=== PATIENT | male | born 1990 | race Caucasian/White ===

== ENCOUNTER 2021-12-08 15:12 | Inpatient (IN) | payer SELFPAY ==
[2021-12-08] VITALS (36 sets, daily range): BP systolic 133–170; BP diastolic 77–116; PULSE 77–132; RESP 18–20; TEMP 36.3–37.1; O2SAT 93–100; BMI 23.7; BMI 24.3
[2021-12-08] MEDS: ONDANSETRON 2 MG/ML inj 4 MG IVP ×2 (17:56→22:20)
[2021-12-08] MEDS: 0.9 % SODIUM CHLORIDE 1000 ml 1,000 ML IV ×2 (17:56→19:25)
[2021-12-08 17:57] LABS: Basophils Absolute Auto 0.07 K/uL (0.00-0.30); Basophils Percent Auto 0.7 % (0.0-3.0); Eosinophils Absolute Auto 0.03 K/uL (0.00-0.50); Eosinophils Percent Auto 0.3 % (0.0-7.0); Hematocrit 42.5 % (37.0-53.0); Hemoglobin* 15.6 gm/dL (13.5-17.5); Immature Granulocytes Abs Auto 0.01 K/uL (0.00-0.30); Lymphocytes Absolute Auto 2.76 K/uL (0.90-2.90); Lymphocytes Percent Auto 28.4 % (20-44); Mean Corpuscular HGB Conc 37 gm/dL (32-36); Mean Corpuscular Hemoglobin 32 pg (26-34); Mean Corpuscular Volume 87 fL (80-100); Monocytes Percent Auto 7.3 % (0.0-11.0); Neutrophils Absolute Auto 6.14 K/uL (1.7-7.0); Neutrophils Percent Auto 63.2 % (42.0-72.0); Platelet Count* 364 K/uL (140-440); RDW Coefficient of Variation % 11.3 % (11.5-15.5); Red Blood Count 4.88 m/uL (4.30-5.90); White Blood Count* 9.72 K/uL (4.50-11.00)
[2021-12-08] MEDS: LORazepam 2 MG/ML inj 1 MG IVP (18:02)
[2021-12-08 18:03] LABS: Slide Review Reflex No
[2021-12-08 18:04] LABS: Lactate* 4.5 mmol/L (0.5-1.9)
--- NOTE | 2021-12-08 18:08 | ED.NURSE ---
dr benitez and mariza rn aware of lactate of 4.5.
[2021-12-08 18:14] LABS: INR 1.06 (0.91-1.10); Prothrombin Time 14.2 Seconds
--- NOTE | 2021-12-08 18:20 | ED_ITS ---
HPI - General Adult General Date Seen: 12/08/21 Chief complaint: Flank Pain Stated complaint: Right side pain Time Seen by Provider: 12/08/21 17:31 Source: patient History of Present Illness HPI narrative: Patient is a 31-year-old male with a history of alcohol overuse who presents with right upper quadrant pain, vomiting and vomiting blood. He says that he has a history of heavy alcohol use, more recently he says he is only drinking 2 or 3 days a week. He did drink the past couple of days, last alcohol was last night. He says he has right upper quadrant pain which is fairly chronic, he says he was seen once in [place] and had a bunch of labs and was told his liver is fine, but he clearly worries a lot about this being problem with his liver. He says he has looked online and says he has a lot of the symptoms, that his skin is often dry and itchy, sometimes his eyes look yellow. He says he has right upper quadrant pain all the time which is mild but the past couple of days it has been more severe, especially today. He points to a location and the far right lateral abdomen. This morning he started vomiting, he says he initially was vomiting stomach contents with streaks of bright red blood. Then he says he was vomiting what looked more like coffee grounds. Now he is vomiting again streaks of bright red blood. He has not had any emesis that is been just blood. He has vomited multiple times. Continues to feel nauseated. Has not had any diarrhea, denies black or bloody stools. No fevers. No urinary symptoms. He chews tobacco, denies other substances. He has been through alcohol treatment. Denies other medical history. Related Data Allergies Allergy/AdvReac Type Severity Reaction Status Date / Time No Known Drug Allergies Allergy Verified 12/08/21 15:35 Review of Systems Status of ROS: Reports: 10 or more systems reviewed and unremarkable except as noted in History and below [facility] Medical History (Updated 12/08/21 @ 21:35 by Melanie Brar MD) Alcoholism GERD (gastroesophageal reflux disease) Surgical History (Updated 12/08/21 @ 21:35 by Melanie Brar MD) S/P tonsillectomy and adenoidectomy Social History Smoking Status: Never smoker Do you use any of these nicotine containing products: Smokeless Tobacco Second hand tobacco smoke exposure: No How often do you have a drink containing alcohol: 4 or more times a week How many standard drinks containing alcohol do you have on a typical day: 10 or more How often do you have six or more drinks on one occasion: Daily or almost daily AUDIT-C Alcohol total score: 12 Non-prescribed substance use: denies use Exam Narrative: Exam Narrative: Vital signs as noted above. In general, an alert, nontoxic in man. Head: Normocephalic, atraumatic. Eyes: Pupils are equal reactive. Extraocular movements are full. Conjunctivae do not appear jaundiced. ENT: Mucous membranes are moist. Throat is normal. Neck: Supple without lymphadenopathy. Heart: Tachycardic and regular. No murmur or rub. Lungs: Clear bilaterally. No increased work of breathing, crackles or wheezes. Abdomen: Soft and nontender. No organomegaly. Extremities: Well perfused. No edema. No calf tenderness. Pulses intact. Neurologic: Patient is alert and oriented to person and place. Speech is fluent. Face is symmetric. Moves all extremities equally. Affect: Normal. Skin: Warm and dry. Well perfused. Const: Vital Signs, click to edit/add: Vital Signs - 24 hr 12/08/21 15:29 12/08/21 18:23 12/08/21 18:30 Temperature 97.3 F L Pulse Rate 93 82 Pulse Rate [Right Pulse Oximeter] 132 H Respiratory Rate 20 Blood Pressure Blood Pressure [Ri ght Arm] Blood Pressure [Ri ght Upper Arm] 137/104 H Pulse Oximetry 97 97 97 Oxygen Delivery Me thod Room Air 12/08/21 18:31 12/08/21 17:55 12/08/21 18:15 Temperature Pulse Rate 91 Pulse Rate [Right Pulse Oximeter] 80 Respiratory Rate Blood Pressure 161/104 H Blood Pressure [Ri ght Arm] Blood Pressure [Ri ght Upper Arm] 170/116 H 157/107 H Pulse Oximetry 93 100 Oxygen Delivery Me thod Room Air 12/08/21 18:32 12/08/21 18:45 12/08/21 18:47 Temperature Pulse Rate 91 78 80 Pulse Rate [Right Pulse Oximeter] Respiratory Rate Blood Pressure 149/105 H Blood Pressure [Ri ght Arm] Blood Pressure [Ri ght Upper Arm] Pulse Oximetry 94 99 98 Oxygen Delivery Me thod 12/08/21 19:01 12/08/21 19:30 12/08/21 19:15 Temperature 98.7 F Pulse Rate 87 87 Pulse Rate [Right Pulse Oximeter] 77 Respiratory Rate Blood Pressure Blood Pressure [Ri ght Arm] 144/97 H Blood Pressure [Ri ght Upper Arm] Pulse Oximetry 99 99 93 Oxygen Delivery Me thod Room Air 12/08/21 19:16 12/08/21 19:30 12/08/21 19:32 Temperature Pulse Rate 77 80 81 Pulse Rate [Right Pulse Oximeter] Respiratory Rate Blood Pressure 141/103 H 144/97 H Blood Pressure [Ri ght Arm] Blood Pressure [Ri ght Upper Arm] Pulse Oximetry 98 99 99 Oxygen Delivery Ca thod 12/08/21 19:33 12/08/21 19:45 12/08/21 19:47 Temperature Pulse Rate 85 94 78 Pulse Rate [Right Pulse Oximeter] Respiratory Rate Blood Pressure 140/99 H Blood Pressure [Ri ght Arm] Blood Pressure [Ri ght Upper Arm] Pulse Oximetry 98 100 100 Oxygen Delivery Me thod 12/08/21 20:00 12/08/21 20:01 12/08/21 20:15 Temperature Pulse Rate 89 86 105 H Pulse Rate [Right Pulse Oximeter] Respiratory Rate Blood Pressure 137/98 H Blood Pressure [Ri ght Arm] Blood Pressure [Ri ght Upper Arm] Pulse Oximetry 100 98 100 Oxygen Delivery Me thod 12/08/21 20:16 12/08/21 21:09 12/08/21 20:17 Temperature Pulse Rate 92 94 Pulse Rate [Right Pulse Oximeter] 95 Respiratory Rate Blood Pressure 137/97 H Blood Pressure [Ri ght Arm] 144/99 H Blood Pressure [Ri ght Upper Arm] Pulse Oximetry 99 98 99 Oxygen Delivery Me thod Room Air 12/08/21 20:30 12/08/21 20:32 12/08/21 20:45 Temperature Pulse Rate 99 109 H 103 H Pulse Rate [Right Pulse Oximeter] Respiratory Rate Blood Pressure 139/84 Blood Pressure [Ri ght Arm] Blood Pressure [Ri ght Upper Arm] Pulse Oximetry 100 99 97 Oxygen Delivery Me thod 12/08/21 20:47 12/08/21 21:00 12/08/21 21:01 Temperature Pulse Rate 107 H 97 99 Pulse Rate [Right Pulse Oximeter] Respiratory Rate Blood Pressure 142/114 H 144/99 H Blood Pressure [Ri ght Arm] Blood Pressure [Ri ght Upper Arm] Pulse Oximetry 98 99 98 Oxygen Delivery Me thod 12/08/21 21:15 12/08/21 21:17 Temperature Pulse Rate 106 H 97 Pulse Rate [Right Pulse Oximeter] Respiratory Rate Blood Pressure 152/77 H Blood Pressure [Ri ght Arm] Blood Pressure [Ri ght Upper Arm] Pulse Oximetry 99 97 Oxygen Delivery Me thod Course Course Hospital Course: Initially, we placed an IV here, carmelita labs, gave a L of normal saline as well as Zofran and a mg of Ativan for suspected withdrawal given his tachycardia and hypertension. It did sound like the blood in his emesis was probably likely related to Cierra-Starkey tears rather than esophageal perforation given his otherwise benign presentation. White count returned at 9.7, hemoglobin of 15.6, platelets normal. Initial metabolic panel showed CO2 of 18. His lactate was elevated at 4.5. He received a total of 2 L of normal saline initially. His LFTs showed a total bilirubin of 1.7 an AST of 41, ALT of 28. CRP was normal at less than 0.5. Alk-phos was normal at 71 and lipase was normal at 158. His abdominal exam really was quite benign, he did not have any right upper quadrant tenderness but all things considered I elected to do a CT scan of the abdomen to rule out any significant findings, make sure he did not have any evidence of pancreatitis, perforated viscus etcetera. By my review, there were no acute findings in the abdomen, and I did not see any acute abnormalities in the visualized chest either. The final radiology report was negative. After fluids, I repeated the lactate and basic metabolic panel, and I did a venous gas at the same time. Labs really are not markedly improved, and in addition he had another episode of vomiting despite the Zofran. I did give him Reglan. He is complaining of chest pain when he vomits. I did a chest x-ray just to make sure there are no abnormalities at this time, by my review that is negative, I do not see any evidence of pneumothorax or pneumomediastinum. The final radiology read is likewise negative. An EKG likewise did not show any acute findings by my review. QT was slightly prolonged. His blood alcohol was 0.11. Venous gas showed interestingly a respiratory alkalosis. No evidence of an alcoholic ketoacidosis or signs of lactic acidosis. At this time, I do not think is a good candidate to go home or to detox given metabolic abnormalities and ongoing vomiting. Plan will be to admit him to the hospitalist service. I gave him Protonix 40 mg IV. At this time, he is not showing significant signs of withdrawal after Ativan. Vital Signs Vital signs: Initial Vital Signs Temperature 97.3 F L 12/08/21 15:29 Temperature Source Temporal Artery Scan 12/08/21 15:29 Pulse Rate 132 H 12/08/21 15:29 Respiratory Rate 20 12/08/21 15:29 Blood Pressure 137/104 H 12/08/21 15:29 Blood Pressure Mean 115 12/08/21 15:29 Blood Pressure Position Sitting 12/08/21 15:29 Pulse Oximetry 97 12/08/21 15:29 Oxygen Delivery Method 12/08/21 15:29 Vital Signs Temperature 97.3 F L 12/08/21 15:29 Pulse Rate 132 H 12/08/21 15:29 Respiratory Rate 20 12/08/21 15:29 Blood Pressure 137/104 H 12/08/21 15:29 Pulse Oximetry 97 12/08/21 15:29 Oxygen Delivery Method 12/08/21 15:29 Temperature 98.7 F 12/08/21 19:30 Pulse Rate 97 12/08/21 21:17 Respiratory Rate 20 12/08/21 15:29 Blood Pressure 152/77 H 12/08/21 21:17 Pulse Oximetry 97 12/08/21 21:17 Oxygen Delivery Method 12/08/21 21:09 Medical Decision Making Lab Data Labs: Lab Results 12/08/21 12/08/21 12/08/21 Range/Units 17:45 17:45 17:45 WBC 9.72 (4.50-11.00) K/uL RBC 4.88 (4.30-5.90) m/uL Hgb 15.6 (13.5-17.5) gm/dL Hct 42.5 (37.0-53.0) % MCV 87 (80-100) fL MCH 32 (26-34) pg MCHC 37 H (32-36) gm/dL RDW Coeff of Renuka 11.3 L (11.5-15.5) % Plt Count 364 (140-440) K/uL Neut % (Auto) 63.2 (42.0-72.0) % Lymph % (Auto) 28.4 (20-44) % [place] % (Auto) 7.3 (0.0-11.0) % Eos % (Auto) 0.3 (0.0-7.0) % Baso % (Auto) 0.7 (0.0-3.0) % Neut # (Auto) 6.14 (1.7-7.0) K/uL Lymph # (Auto) 2.76 (0.90-2.90) K/uL [place] # (Auto) 0.70 (0.00-0.90) K/UL Eos # (Auto) 0.03 (0.00-0.50) K/uL Baso # (Auto) 0.07 (0.00-0.30) K/uL Abs Immat Gran (auto) 0.01 (0.00-0.30) K/uL INR (0.91-1.10) VBG pH (7.32-7.43) VBG pCO2 (40-50) mmHG VBG pO2 (25-47) mmHG VBG HCO3 (21-28) mmol/L Sodium 141 (135-149) mmol/L Potassium 3.5 L (3.6-5.1) mmol/L Chloride 101 (96-114) mmol/L Carbon Dioxide 18 L (20-32) mmol/L BUN 11 (5-24) mg/dL Creatinine 1.1 (0.5-1.5) mg/dL Estimated Creat Clear 107.78 Estimated GFR 93 ml/min Glucose 126 H (60-115) mg/dL Lactate 4.5 H* (0.5-1.9) mmol/L Calcium 9.2 (8.4-10.6) mg/dL Total Bilirubin 1.7 H (0.1-1.5) mg/dL Direct Bilirubin 0.3 (0.0-0.5) mg/dL AST 41 H (12-35) U/L ALT 28 (4-50) U/L Alkaline Phosphatase 71 (40-150) U/L C-Reactive Protein < 0.5 L (0.5-1.0) mg/dL Total Protein 8.6 H (6.0-8.3) g/dL Albumin 5.1 H (3.3-5.0) g/dL Lipase 158 (23-300) U/L Ethyl Alcohol 0.11 H (0.01-0.03) % SARS-CoV-2 (PCR) (Negative) Influenza Type A (PCR) (Negative) Influenza Type B (PCR) (Negative) 12/08/21 12/08/21 12/08/21 Range/Units 17:45 19:46 20:28 WBC (4.50-11.00) K/uL RBC (4.30-5.90) m/uL Hgb (13.5-17.5) gm/dL Hct (37.0-53.0) % MCV (80-100) fL MCH (26-34) pg MCHC (32-36) gm/dL RDW Coeff of Renuka (11.5-15.5) % Plt Count (140-440) K/uL Neut % (Auto) (42.0-72.0) % Lymph % (Auto) (20-44) % [place] % (Auto) (0.0-11.0) % Eos % (Auto) (0.0-7.0) % Baso % (Auto) (0.0-3.0) % Neut # (Auto) (1.7-7.0) K/uL Lymph # (Auto) (0.90-2.90) K/uL [place] # (Auto) (0.00-0.90) K/UL Eos # (Auto) (0.00-0.50) K/uL Baso # (Auto) (0.00-0.30) K/uL Abs Immat Gran (auto) (0.00-0.30) K/uL INR 1.06 (0.91-1.10) VBG pH (7.32-7.43) VBG pCO2 (40-50) mmHG VBG pO2 (25-47) mmHG VBG HCO3 (21-28) mmol/L Sodium 139 (135-149) mmol/L Potassium 3.6 (3.6-5.1) mmol/L Chloride 106 (96-114) mmol/L Carbon Dioxide 19 L (20-32) mmol/L BUN 10 (5-24) mg/dL Creatinine 1.0 (0.5-1.5) mg/dL Estimated Creat Clear 118.56 Estimated GFR 104 ml/min Glucose 112 (60-115) mg/dL Lactate (0.5-1.9) mmol/L Calcium 8.1 L (8.4-10.6) mg/dL Total Bilirubin (0.1-1.5) mg/dL Direct Bilirubin (0.0-0.5) mg/dL AST (12-35) U/L ALT (4-50) U/L Alkaline Phosphatase (40-150) U/L C-Reactive Protein (0.5-1.0) mg/dL Total Protein (6.0-8.3) g/dL Albumin (3.3-5.0) g/dL Lipase (23-300) U/L Ethyl Alcohol (0.01-0.03) % SARS-CoV-2 (PCR) Negative SARS-CoV-2 (Negative) Influenza Type A (PCR) Negative PCR FLU A (Negative) Influenza Type B (PCR) Negative PCR FLU B (Negative) 12/08/21 12/08/21 Range/Units 20:28 20:28 WBC (4.50-11.00) K/uL RBC (4.30-5.90) m/uL Hgb (13.5-17.5) gm/dL Hct (37.0-53.0) % MCV (80-100) fL MCH (26-34) pg MCHC (32-36) gm/dL RDW Coeff of Renuka (11.5-15.5) % Plt Count (140-440) K/uL Neut % (Auto) (42.0-72.0) % Lymph % (Auto) (20-44) % [place] % (Auto) (0.0-11.0) % Eos % (Auto) (0.0-7.0) % Baso % (Auto) (0.0-3.0) % Neut # (Auto) (1.7-7.0) K/uL Lymph # (Auto) (0.90-2.90) K/uL [place] # (Auto) (0.00-0.90) K/UL Eos # (Auto) (0.00-0.50) K/uL Baso # (Auto) (0.00-0.30) K/uL Abs Immat Gran (auto) (0.00-0.30) K/uL INR (0.91-1.10) VBG pH 7.458 H (7.32-7.43) VBG pCO2 31 L (40-50) mmHG VBG pO2 64.3 H (25-47) mmHG VBG HCO3 22 (21-28) mmol/L Sodium (135-149) mmol/L Potassium (3.6-5.1) mmol/L Chloride (96-114) mmol/L Carbon Dioxide (20-32) mmol/L BUN (5-24) mg/dL Creatinine (0.5-1.5) mg/dL Estimated Creat Clear Estimated GFR ml/min Glucose (60-115) mg/dL Lactate 4.4 H* (0.5-1.9) mmol/L Calcium (8.4-10.6) mg/dL Total Bilirubin (0.1-1.5) mg/dL Direct Bilirubin (0.0-0.5) mg/dL AST (12-35) U/L ALT (4-50) U/L Alkaline Phosphatase (40-150) U/L C-Reactive Protein (0.5-1.0) mg/dL Total Protein (6.0-8.3) g/dL Albumin (3.3-5.0) g/dL Lipase (23-300) U/L Ethyl Alcohol (0.01-0.03) % SARS-CoV-2 (PCR) (Negative) Influenza Type A (PCR) (Negative) Influenza Type B (PCR) (Negative) Discharge Plan Discharge Follow Up/Referrals: Provider,Not a Local [Primary Care Provider] -
[2021-12-08 18:24] LABS: Albumin* 5.1 g/dL (3.3-5.0); Chloride* 101 mmol/L (96-114); Potassium* 3.5 mmol/L (3.6-5.1); Sodium* 141 mmol/L (135-149)
[2021-12-08 18:26] LABS: Creatinine* 1.1 mg/dL (0.5-1.5); Est. Creatinine Clearance* 107.78; Estimated Glomerular Filt Rate 93 ml/min
[2021-12-08 18:27] LABS: Alkaline Phosphatase* 71 U/L (40-150); Aspartate Amino Transferase* 41 U/L (12-35); Bilirubin Direct* 0.3 mg/dL (0.0-0.5); Bilirubin Total* 1.7 mg/dL (0.1-1.5); Blood Urea Nitrogen* 11 mg/dL (5-24); Carbon Dioxide* 18 mmol/L (20-32); Lipase* 158 U/L (23-300); Total Protein* 8.6 g/dL (6.0-8.3)
[2021-12-08 18:28] LABS: Alanine Aminotransferase* 28 U/L (4-50); Calcium* 9.2 mg/dL (8.4-10.6); Ethanol* 0.11 % (0.01-0.03); Glucose* 126 mg/dL (60-115)
--- NOTE | 2021-12-08 18:33 | CRLHL7_ITS ---
For Patients: As a result of the Century Cures Act, medical imaging exams and procedure reports are released immediately into your electronic medical record. You may view this report before your referring provider. If you have questions, please contact your health care provider. INDICATION: Right-sided abdominal pain TECHNIQUE: CT abdomen and pelvis acquired with 85 cc Isovue 370 IV contrast. COMPARISON: None. FINDINGS: Lower chest: The visualized lower lungs are aerated. No pleural or pericardial effusion. ABDOMEN: Liver: Normal enhancement. No focal suspicious hepatic lesions. Gallbladder and biliary: Normal gallbladder without radiopaque stone. Normal caliber bile ducts. Spleen: Normal size and enhancement. Pancreas: Normal enhancement without peripancreatic inflammatory changes or ductal dilatation. Adrenal glands: Normal adrenal glands. Kidneys and ureters: Normal enhancement. No radio-opaque calculi. No hydroureteronephrosis. GI tract: The stomach is relatively decompressed. Normal caliber small and large bowel loops. Normal appendix. Vascular structures: Normal caliber abdominal aorta. Lymph nodes: No lymphadenopathy in the abdomen or pelvis by size criteria. Peritoneum: No free air, free fluid, or focal drainable fluid collection. PELVIS: Genitourinary system: Normal urinary bladder. Normal size prostate. Symmetric seminal vesicles. SKELETAL STRUCTURES AND SOFT TISSUES: No suspicious lytic or blastic lesions. IMPRESSION: No acute abdominal pelvic process. No obstruction. No hydroureteronephrosis. Normal appendix. No imaging findings to explain the patient`s reported clinical symptoms. Please note that all CT scans at this facility use dose modulation, iterative reconstruction, and/or weight-based dosing when appropriate to reduce radiation dose to as low as reasonably achievable. Dictated by Vikram Forrester MD @ 12/08/2021 7:28:41 PM (Electronically Signed)
[2021-12-08 18:35] LABS: C Reactive Protein* < 0.5 mg/dL (0.5-1.0)
[2021-12-08 20:41] LABS: PCO2 VBG 31 mmHG (40-50); pH VBG 7.458 (7.32-7.43)
[2021-12-08 20:42] LABS: HCO3 VBG 22 mmol/L (21-28); PO2 VBG 64.3 mmHG (25-47)
[2021-12-08 20:43] LABS: Lactate* 4.4 mmol/L (0.5-1.9)
[2021-12-08] MEDS: PANTOPRAZOLE SODIUM 40 MG INJ IVP (20:47)
[2021-12-08 20:48] LABS: PCR FLU A Negative PCR FLU A (Negative); PCR FLU B Negative PCR FLU B (Negative); SARS PCR* Negative SARS-CoV-2 (Negative)
--- NOTE | 2021-12-08 20:50 | CRLHL7_ITS ---
For Patients: As a result of the Century Cures Act, medical imaging exams and procedure reports are released immediately into your electronic medical record. You may view this report before your referring provider. If you have questions, please contact your health care provider. INDICATION: Chest pain. TECHNIQUE: Chest 1 views. COMPARISON: None. FINDINGS: Cardiovascular and mediastinum: Heart size and vasculature are normal in caliber and appearance. Lungs and pleural spaces: Lungs are clear. No sign of pleural effusion. No pneumothorax. Bones and soft tissues: No significant findings. IMPRESSION: No acute or significant findings. Dictated by Kapil Saldivar MD @ 12/08/2021 9:39:51 PM (Electronically Signed)
--- NOTE | 2021-12-08 20:51 | ED.NURSE ---
Pt complaining of feeling a heartburn type epigastric/chest pain. Pt also producing emesis relatively frequently (~150cc total at this time). Emesis is yellowish-clear colored and frothy. MD notified of pt emesis and heartburn/chest pain. MD ordered additional meds and imaging.
[2021-12-08 20:54] LABS: Chloride* 106 mmol/L (96-114); Potassium* 3.6 mmol/L (3.6-5.1); Sodium* 139 mmol/L (135-149)
[2021-12-08 20:57] LABS: Blood Urea Nitrogen* 10 mg/dL (5-24); Carbon Dioxide* 19 mmol/L (20-32); Est. Creatinine Clearance* 118.56; Estimated Glomerular Filt Rate 104 ml/min
[2021-12-08 20:58] LABS: Calcium* 8.1 mg/dL (8.4-10.6); Glucose* 112 mg/dL (60-115)
[2021-12-08] MEDS: METOCLOPRAMIDE HCL 10 MG in 0.9 % SODIUM CHLORIDE 100 ml 100 ML 306 MG IVPB (21:04)
--- NOTE | 2021-12-08 21:09 | W.PC.EDHO ---
Primary Language: Yakut Preferred Language: Orientation Status: x Alert & Oriented [] Slight Confusion [] Known Dx Dementia Transfers By: [x] Assist of 1 [] Assist of 2 [] Lift Active Medications Generic Name Dose Route Start Last Admin Trade Name Freq PRN Reason Stop Dose Admin Metoclopramide HCl 10 mg/ 102 mls @ 306 mls/hr 12/08/21 20:30 12/08/21 21:04 Sodium Chloride IVPB 12/08/21 20:31 306 mls/hr ONCE ONE Administration Pantoprazole Sodium 40 mg 12/08/21 20:36 12/08/21 20:47 Pantoprazole Sodium 40 Mg Inj IVP 12/08/21 20:37 40 mg ONCE ONE Administration Discontinued Medications Generic Name Dose Route Start Last Admin Trade Name Freq PRN Reason Stop Dose Admin Sodium Chloride 1,000 mls @ 1,000 mls/hr 12/08/21 17:45 12/08/21 19:24 0.9 % Sodium Chloride 1000 Ml IV 12/08/21 18:44 Infused .Q1H GUILLERMO Infusion Sodium Chloride 1,000 mls @ 1,000 mls/hr 12/08/21 18:15 12/08/21 20:35 0.9 % Sodium Chloride 1000 Ml IV 12/08/21 19:14 Infused .Q1H GUILLERMO Infusion Pantoprazole Sodium 80 mg/ 100 mls @ 10 mls/hr 12/08/21 20:30 12/08/21 20:47 Sodium Chloride IVPB 12/09/21 06:29 Not Given ONCE ONE Lorazepam 1 mg 12/08/21 17:56 12/08/21 18:02 Lorazepam 2 Mg/Ml Inj IVP 12/08/21 17:57 1 mg ONCE ONE Administration Ondansetron HCl 4 mg 12/08/21 17:44 12/08/21 17:56 Ondansetron 2 Mg/Ml Inj IVP 12/08/21 17:45 4 mg ONCE ONE Administration Description of Symptoms ED Triage Present Problem patient is havng sharp pain in the right side of Description the abdomen. stated vomiting blood and bright red then sometime coffee ground. strted 0300 in the morning and has not stopped vomiting. otherwise has been vomiting blood for the past 2 years hx of ETOH. last time drinking was yesterday drank a pint of whiskey. pt is feeling lightheaded, weak , side right feels as if getting stabbed, N. ED Triage Date of Onset of 12/08/21 Symptoms Female History Patient Pain Pain Description [Right Burning,Sharp Abdomen] Pain Description [Right Sharp,Stabbing Abdomen] Pain Intensity [Right Abdomen] 7 Pain Intensity [Right Abdomen] 8 Pain Intensity 7 Pain Intensity 7 Pain Scale Used [Right Abdomen Numeric (1 - 10) ] Pain Scale Used [Right Abdomen Numeric (1 - 10) ] Pain Scale Used Numeric (1 - 10) Pain Scale Used Numeric (1 - 10) IV Insertion/Site Date of IV Line Insertion [ 12/08/21 Left Antecubital] Oxygen Administration Pulse Oximetry 99 Pulse Oximetry 100 Pulse Oximetry 98 Pulse Oximetry 100 Pulse Oximetry 100 Pulse Oximetry 100 Pulse Oximetry 98 Pulse Oximetry 99 Pulse Oximetry 99 Pulse Oximetry 99 Pulse Oximetry 98 Pulse Oximetry 93 Pulse Oximetry 99 Pulse Oximetry 98 Pulse Oximetry 99 Pulse Oximetry 94 Pulse Oximetry 93 Pulse Oximetry 97 Pulse Oximetry 97 Pulse Oximetry 100 Pulse Oximetry 97 Oxygen Delivery Method Room Air Oxygen Delivery Method Room Air Oxygen Delivery Method Room Air
--- NOTE | 2021-12-08 21:23 | PM.IMHP1 ---
Hospitalist- H&P: HPI History of Present Illness Date Seen: 12/08/21 Chief complaint: Right side pain Narrative: ADMISSION HISTORY AND PHYSICAL - HOSPITALIST Chief Complaint: My abdomen is sore and I'm puking blood HPI: 31 y/o with a hx of alcoholism presents to our ED with RUQ pain and n/v. he has noted blood streaked vomit. this is a new occurence to him and with baseline anxiety has made him quite unsettled. No fever, no diarrhea. no cough. Was in the [facility] with dehydration and withdrawal and had a creatinine of 3 last month. He was not admitted. No known seizure hx during withdrawal. does tell me he withdrawals and sees things that aren't there. Last drink was 0900 this am. whisky. pint or so a day. In the ED he had fluids, protonix, reglan, zofran and a CT scan. Hospital medicine team asked to admit for persistent elevated lactate, continued vomiting with bloody streaks even after fluids and zofran/reglan. I've updated the PFSH, medications and allergies in the [facility] tabs. INVESTIGATIONS: LABS/MICRO/ECG/IMAGING Hypertensive since arrival 130s to 170s/104-107 Pulse rate was initially 132 and is currently 1 6 but has been as low as 78 Respiratory rate and pulse ox are unremarkable. CBC is unremarkable. Hemoglobin 15.6 INR 1.06 PH 7.45, pCO2 31, bicarb 22 CO2 of 19 Normal electrolytes and renal function Glucose 122 Persistently elevated lactate of 4.5 and 4.4 Total bili mildly elevated 1.7 AST mildly elevated at 41 CRP unremarkable Total protein 8.6 Albumin 5.1 Alcohol level 0.[address] abdomen pelvis: No acute abdominal pelvic process. No obstruction. No hydroureteronephrosis. Normal appendix. No imaging findings to explain the patient`s reported clinical symptoms. Chest x-ray unremarkable REVIEW OF SYSTEMS: 12-point ROS completed with patient and negative unless otherwise stated in HPI or below. PHYSICAL EXAM: CODE STATUS: FULL CODE CONSTITUTIONAL: Conversive, good historian. A/O. Knows setting and context. He's anxious and gets up to dry heave during interview. VITAL SIGNS: see record. HEENT: Normocephalic, atraumatic. PERRL, EOMI, conjunctivae pink, no scleral icterus. Ears and nose externally normal. Pharynx dry. NECK: No JVD. No carotid bruit, no thyromegaly, no adenopathy. CHEST: Clear to auscultation bilaterally HEART: S1 and S2 normal. No harsh murmurs. Edema MUSCULOSKELETAL: No gross joint deformity or swelling. NEURO: Cranial nerves intact. Grossly intact. No asymmetric findings. SKIN: No rashes, petechiae, concerning changes PSYCHIATRIC: Euthymic. ADMIT TO MEDSURG: FLOOR CARE DVT: SCDs GI: PPI Time spent: 70 minutes examining patient, conferring with family and patient, care staff, developing care plan [facility] Medical History Alcoholism GERD (gastroesophageal reflux disease) Surgical History S/P tonsillectomy and adenoidectomy Social History Narrative: lives with his Dad in [facility]. 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 Graduated from college. no kids. What is your current living situation: I presently have a place to live Smoking Status: Never smoker Do you use any of these nicotine containing products: Smokeless Tobacco Second hand tobacco smoke exposure: No How often do you have a drink containing alcohol: 4 or more times a week How many standard drinks containing alcohol do you have on a typical day: 10 or more How often do you have six or more drinks on one occasion: Daily or almost daily AUDIT-C Alcohol total score: 12 Non-prescribed substance use: denies use Meds Home Medications and Allergies Allergies Allergy/AdvReac Type Severity Reaction Status Date / Time No Known Drug Allergies Allergy Verified 12/08/21 15:35 Exam Const: Vital Signs, click to edit/add: Vital Signs - 24 hr 12/08/21 15:29 12/08/21 18:23 12/08/21 18:30 Temperature 97.3 F L Pulse Rate 93 82 Pulse Rate [Right Pulse Oximeter] 132 H Respiratory Rate 20 Blood Pressure Blood Pressure [Ri ght Arm] Blood Pressure [Ri ght Upper Arm] 137/104 H Pulse Oximetry 97 97 97 Oxygen Delivery Me thod Room Air 12/08/21 18:31 12/08/21 17:55 12/08/21 18:15 Temperature Pulse Rate 91 Pulse Rate [Right Pulse Oximeter] 80 Respiratory Rate Blood Pressure 161/104 H Blood Pressure [Ri ght Arm] Blood Pressure [Ri ght Upper Arm] 170/116 H 157/107 H Pulse Oximetry 93 100 Oxygen Delivery Me thod Room Air 12/08/21 18:32 12/08/21 18:45 12/08/21 18:47 Temperature Pulse Rate 91 78 80 Pulse Rate [Right Pulse Oximeter] Respiratory Rate Blood Pressure 149/105 H Blood Pressure [Ri ght Arm] Blood Pressure [Ri ght Upper Arm] Pulse Oximetry 94 99 98 Oxygen Delivery Me thod 12/08/21 19:01 12/08/21 19:30 12/08/21 19:15 Temperature 98.7 F Pulse Rate 87 87 Pulse Rate [Right Pulse Oximeter] 77 Respiratory Rate Blood Pressure Blood Pressure [Ri ght Arm] 144/97 H Blood Pressure [Ri ght Upper Arm] Pulse Oximetry 99 99 93 Oxygen Delivery Me od Room Air 12/08/21 19:16 12/08/21 19:30 12/08/21 19:32 Temperature Pulse Rate 77 80 81 Pulse Rate [Right Pulse Oximeter] Respiratory Rate Blood Pressure 141/103 H 144/97 H Blood Pressure [Ri ght Arm] Blood Pressure [Ri ght Upper Arm] Pulse Oximetry 98 99 99 Oxygen Delivery Me od 12/08/21 19:33 12/08/21 19:45 12/08/21 19:47 Temperature Pulse Rate 85 94 78 Pulse Rate [Right Pulse Oximeter] Respiratory Rate Blood Pressure 140/99 H Blood Pressure [Ri ght Arm] Blood Pressure [Ri ght Upper Arm] Pulse Oximetry 98 100 100 Oxygen Delivery Me thod 12/08/21 20:00 12/08/21 20:01 12/08/21 20:15 Temperature Pulse Rate 89 86 105 H Pulse Rate [Right Pulse Oximeter] Respiratory Rate Blood Pressure 137/98 H Blood Pressure [Ri ght Arm] Blood Pressure [Ri ght Upper Arm] Pulse Oximetry 100 98 100 Oxygen Delivery Me thod 12/08/21 20:16 12/08/21 21:09 12/08/21 20:17 Temperature Pulse Rate 92 94 Pulse Rate [Right Pulse Oximeter] 95 Respiratory Rate Blood Pressure 137/97 H Blood Pressure [Ri ght Arm] 144/99 H Blood Pressure [Ri ght Upper Arm] Pulse Oximetry 99 98 99 Oxygen Delivery Me od Room Air 12/08/21 20:30 12/08/21 20:32 12/08/21 20:45 Temperature Pulse Rate 99 109 H 103 H Pulse Rate [Right Pulse Oximeter] Respiratory Rate Blood Pressure 139/84 Blood Pressure [Ri ght Arm] Blood Pressure [Ri ght Upper Arm] Pulse Oximetry 100 99 97 Oxygen Delivery Me thod 12/08/21 20:47 12/08/21 21:00 12/08/21 21:01 Temperature Pulse Rate 107 H 97 99 Pulse Rate [Right Pulse Oximeter] Respiratory Rate Blood Pressure 142/114 H 144/99 H Blood Pressure [Ri ght Arm] Blood Pressure [Ri ght Upper Arm] Pulse Oximetry 98 99 98 Oxygen Delivery Me od 12/08/21 21:15 Temperature Pulse Rate 106 H Pulse Rate [Right Pulse Oximeter] Respiratory Rate Blood Pressure Blood Pressure [Ri ght Arm] Blood Pressure [Ri ght Upper Arm] Pulse Oximetry [facility]: Result Labs Labs: Short CBC 12/08/21 Range/Units 17:45 WBC 9.72 (4.50-11.00) K/uL Hgb 15.6 (13.5-17.5) gm/dL Hct 42.5 (37.0-53.0) % Plt Count 364 (140-440) K/uL BMP 12/08/21 12/08/21 17:45 20:28 Sodium 141 139 Potassium 3.5 L 3.6 Chloride 101 106 Carbon Dioxide 18 L 19 L BUN 11 10 Creatinine 1.1 1.0 Glucose 126 H 112 Calcium 9.2 8.1 L Liver Function 12/08/21 Range/Units 17:45 Total Bilirubin 1.7 H (0.1-1.5) mg/dL Direct Bilirubin 0.3 (0.0-0.5) mg/dL AST 41 H (12-35) U/L ALT 28 (4-50) U/L Alkaline Phosphatase 71 (40-150) U/L Albumin 5.1 H (3.3-5.0) g/dL Assessment and Plan Assessment and plan (1) Lactic acidosis: Problem comment: -clear sips and ice chips tonight -IVF at 250cc and hour -continuous pulse ox -trend labs Status: Acute (2) Hematemesis with nausea: Problem comment: -PPI IV, oral PPI. trend symptoms and labs. likely gastritis. consider EGD if clinically indicated. Status: Acute (3) Alcohol withdrawal: Problem comment: -[facility] protocol -single dose of phenobarbital. hypertensive; anxious; previous withdrawal symptoms. Status: Acute (4) Alcoholism: Status: Acute (5) GERD (gastroesophageal reflux disease): Status: Acute
--- NOTE | 2021-12-08 21:26 | ED.NURSE ---
EKG completed due to pt complaint of chest pain. MD notified.
[2021-12-08 22:06] LABS: Appearance Urine Clear (Clear); Bilirubin Urine Negative (Negative); Blood Urine Negative (Negative); Color Urine Yellow (Yellow); Glucose Urine Negative (Negative); Ketones Urine 1+ (Negative); Leukocyte Esterase Urine Negative (Negative); Nitrite Urine Negative (Negative); Protein Urine Trace (Negative); Urobilinogen Urine >=8.0 (0.2-1.0); pH Urine 7.5 (5.0-8.5)
[2021-12-08 22:12] LABS: Amphetamine Screen Urine Negative (Negative); Barbiturate Screen Urine Negative (Negative); Cannabinoid Screen Urine Negative (Negative); Cocaine Screen Urine Negative (Negative); Methadone Screen Urine Negative (Negative); Methamphetamines Screen Urine Negative (Negative); Opiate Screen Urine Negative (Negative); Oxycodone Screen Urine Negative (Negative); Phencyclidine Screen Urine Negative (Negative); Tricyclic Antidepressant Urine Negative (Negative)
[2021-12-08] MEDS: LORazepam 2 MG/ML inj IVP (22:19)
[2021-12-08] MEDS: LACTATED RINGERS 1000 ML 1,000 ML 250 ML IV (22:20)
[2021-12-08 22:27] LABS: RBC Urine 0-2 (0-2); WBC Urine 0-2 (0-5)
[2021-12-08] MEDS: GABAPENTIN 300 MG CAPSULE PO (22:29)
[2021-12-08 22:35] LABS: Benzodiazepines Screen Urine POSITIVE (Negative)
[2021-12-08] MEDS: PHENobarbitaL 260 MG in 0.9 % SODIUM CHLORIDE 100 ml 100 ML 208 MG IVPB (22:52)
[2021-12-09] VITALS (7 sets, daily range): BP systolic 119–158; BP diastolic 76–103; PULSE 63–97; RESP 16–18; TEMP 36.2–36.7; O2SAT 94–99
[2021-12-09] MEDS: LACTATED RINGERS 1000 ML 1,000 ML 250 ML IV ×3 (03:15→10:49)
[2021-12-09] MEDS: OMEPRAZOLE 20 MG CAPSULE DR 40 MG PO (06:43)
--- NOTE | 2021-12-09 07:24 | PC.NURSE ---
pt to floor at 2135. Upon arrival pt was very nauseous & dry heaving ? minimal clear emesis. Pt was given Zofran with relief. Pt c/o epigastric discomfort r/t vomiting. 1mg Ativan given per CIWA protocol. Pt resting/sleeping after Ativan admin & phenobarbital drip. CIWA scores remaining below 9. BP now WNL. ? Pt states he does not get drunk when drinking?beer and usually doesn?t get sick when he drinks beer. He stated when he drinks whiskey it?s ?too easy? to get drunk, & that when he wakes up after drinking whiskey, he does not feel good so he starts drinking again. ?
[2021-12-09 07:26] LABS: HCO3 VBG 29 mmol/L (21-28); Ionized Calcium* 1.03 mmol/L (1.11-1.30); Lactate* 1.5 mmol/L (0.5-1.9); PCO2 VBG 47 mmHG (40-50); PO2 VBG 34.4 mmHG (25-47)
[2021-12-09 07:36] LABS: Hemoglobin* 12.1 gm/dL (13.5-17.5)
[2021-12-09 07:45] LABS: Albumin* 3.7 g/dL (3.3-5.0); Chloride* 103 mmol/L (96-114)
[2021-12-09 07:46] LABS: Potassium* 3.5 mmol/L (3.6-5.1); Sodium* 136 mmol/L (135-149)
[2021-12-09 07:48] LABS: Alkaline Phosphatase* 51 U/L (40-150); Aspartate Amino Transferase* 29 U/L (12-35); Bilirubin Total* 1.9 mg/dL (0.1-1.5); Blood Urea Nitrogen* 8 mg/dL (5-24); Carbon Dioxide* 27 mmol/L (20-32); Est. Creatinine Clearance* 118.56; Estimated Glomerular Filt Rate 104 ml/min; Total Protein* 6.1 g/dL (6.0-8.3)
[2021-12-09 07:49] LABS: Alanine Aminotransferase* 22 U/L (4-50); Calcium* 7.8 mg/dL (8.4-10.6); Gamma Glutamyl Transpeptidase* 69 U/L (8-55); Glucose* 104 mg/dL (60-115); Lipase* 82 U/L (23-300); Magnesium* 1.4 mg/dL (1.5-2.6)
[2021-12-09] MEDS: ACETAMINOPHEN 325 MG TABLET PO (08:35)
[2021-12-09] MEDS: MULTIVITAMIN/MINERALS 1 TABLET 1 TAB PO (08:35)
[2021-12-09] MEDS: GABAPENTIN 300 MG CAPSULE PO (08:36)
[2021-12-09] MEDS: PHENobarbitaL 32.4 MG TABLET 129.6 MG PO (08:36)
[2021-12-09] MEDS: FOLIC ACID 1 MG TABLET PO (08:36)
[2021-12-09] MEDS: THIAMINE 100 MG TABLET PO (08:36)
[2021-12-09] MEDS: MAGNESIUM SULFATE 2 GM/50 ML PIGGYBACK IVPB (12:07)
--- NOTE | 2021-12-09 14:57 | PC.NURSE ---
end of shift. Pt has been pleasant. has some right upper gastro intestinal discomfort and feeling tired and weak. elevated the HOB and gave tylenol. CIWA 4-7 no Ativan given per. he is drinking and voiding. no food or tray just water. IV LR @ 250. he is up ab nash. CIwa q 4 hours. he is at endo since 1425
--- NOTE | 2021-12-09 15:53 | W.ANESCHARGE ---
Anesthesia Charges Start Date/Time Anesthesia Start Date: 12/09/21 Anesthesia Start Time: 15:24 Stop Date/Time Anesthesia Stop Date: 12/09/21 Anesthesia Stop Time: 15:47 Summary Emergency: Yes
--- NOTE | 2021-12-09 15:58 | W.ANESCHARGE ---
Anesthesia Charges Start Date/Time Anesthesia Start Date: 12/09/21 Anesthesia Start Time: 15:24 Stop Date/Time Anesthesia Stop Date: 12/09/21 Anesthesia Stop Time: 15:47 Summary Emergency: Yes
--- NOTE | 2021-12-09 16:06 | P.DS_ITS ---
DS: Providers Provider Date Seen: 12/09/21 Date of admission: 12/08/21 21:56 Primary care physician: Not a Local Provider Admitting Clinician: Melanie Brar MD Attending Physician on discharge: Melanie Brar MD Date of Discharge: 12/09/21 DS: Diagnosis Discharge Diagnosis (1) Hematemesis with nausea: Status: Acute Problem details: EGD showed distal esophagitis and mild erythema in the antrum. Plan is to stop drinking alcohol and to take a PPI (2) Alcohol withdrawal: Status: Acute Problem details: Mild withdrawal symptoms through hospital stay. (3) GERD (gastroesophageal reflux disease): Status: Acute Problem details: PPI, stop drinking alcohol (4) Lactic acidosis: Status: Acute Problem details: Resolved with fluids. Stop drinking alcohol (5) Alcoholism: Status: Acute Problem details: Recommend ongoing participation in outpatient support group or return to outpatient treatment DS: Summary Hospital Course Hospital Course: Initially, we placed an IV here, carmelita labs, gave a L of normal saline as well as Zofran and a mg of Ativan for suspected withdrawal given his tachycardia and hypertension. It did sound like the blood in his emesis was probably likely related to Cierra-Starkey tears rather than esophageal perforation given his otherwise benign presentation. White count returned at 9.7, hemoglobin of 15.6, platelets normal. Initial metabolic panel showed CO2 of 18. His lactate was elevated at 4.5. He received a total of 2 L of normal saline initially. His LFTs showed a total bilirubin of 1.7 an AST of 41, ALT of 28. CRP was normal at less than 0.5. Alk-phos was normal at 71 and lipase was normal at 158. His abdominal exam really was quite benign, he did not have any right upper quadrant tenderness but all things considered I elected to do a CT scan of the abdomen to rule out any significant findings, make sure he did not have any evidence of pancreatitis, perforated viscus etcetera. By my review, there were no acute findings in the abdomen, and I did not see any acute abnormalities in the visualized chest either. The final radiology report was negative. After fluids, I repeated the lactate and basic metabolic panel, and I did a venous gas at the same time. Labs really are not markedly improved, and in addition he had another episode of vomiting despite the Zofran. I did give him Reglan. He is complaining of chest pain when he vomits. I did a chest x-ray just to make sure there are no abnormalities at this time, by my review that is negative, I do not see any evidence of pneumothorax or pneumomediastinum. The final radiology read is likewise negative. An EKG likewise did not show any acute findings by my review. QT was slightly prolonged. His blood alcohol was 0.11. Venous gas showed interestingly a respiratory alkalosis. No evidence of an alcoholic ketoacidosis or signs of lactic acidosis. At this time, I do not think is a good candidate to go home or to detox given metabolic abnormalities and ongoing vomiting. Plan will be to admit him to the hospitalist service. I gave him Protonix 40 mg IV. At this time, he is not showing significant signs of withdrawal after Ativan. Status at Discharge Functional status at discharge: independent ambulation Overall status at discharge: patient is back to baseline Time Spent with Patient Time attestation: Total time spent providing and/or coordinating discharge services: Time spent: Greater than 30 minutes Specific discharge activities: 40 minutes in coordination of care on the day of discharge Exam Narrative: Exam Narrative: He is alert and appears in no distress. He is not tremulous. Speech is normal. He is pleasant and cooperative. Respirations are clear to auscultation. Cardiovascular: S1, S2, regular rate and rhythm. No murmur gallop or rub. Abdomen: Bowel sounds active. Abdomen is soft with mild epigastric tenderness. No mass. Extremities without edema. Const: Vital Signs, click to edit/add: Vital Signs - 24 hr 12/08/21 18:23 12/08/21 18:30 12/08/21 18:31 Temperature Pulse Rate 93 82 91 Pulse Rate [Right Pulse Oximeter] Respiratory Rate Blood Pressure 161/104 H Blood Pressure [Ri ght Arm] Blood Pressure [Ri ght Upper Arm] Pulse Oximetry 97 97 93 Oxygen Delivery Me thod 12/08/21 17:55 12/08/21 18:15 12/08/21 18:32 Temperature Pulse Rate 91 Pulse Rate [Right Pulse Oximeter] 80 Respiratory Rate Blood Pressure Blood Pressure [Ri ght Arm] Blood Pressure [Ri ght Upper Arm] 170/116 H 157/107 H Pulse Oximetry 100 94 Oxygen Delivery Me thod Room Air 12/08/21 18:45 12/08/21 18:47 12/08/21 19:01 Temperature Pulse Rate 78 80 87 Pulse Rate [Right Pulse Oximeter] Respiratory Rate Blood Pressure 149/105 H Blood Pressure [Ri ght Arm] Blood Pressure [Ri ght Upper Arm] Pulse Oximetry 99 98 99 Oxygen Delivery Mo thod 12/08/21 19:30 12/08/21 19:15 12/08/21 19:16 Temperature 98.7 F Pulse Rate 87 77 Pulse Rate [Right Pulse Oximeter] 77 Respiratory Rate Blood Pressure 141/103 H Blood Pressure [Ri ght Arm] 144/97 H Blood Pressure [Ri ght Upper Arm] Pulse Oximetry 99 93 98 Oxygen Delivery Me od Room Air 12/08/21 19:30 12/08/21 19:32 12/08/21 19:33 Temperature Pulse Rate 80 81 85 Pulse Rate [Right Pulse Oximeter] Respiratory Rate Blood Pressure 144/97 H Blood Pressure [Ri ght Arm] Blood Pressure [Ri ght Upper Arm] Pulse Oximetry 99 99 [facility] 19:45 12/08/21 19:47 12/08/21 20:00 Temperature Pulse Rate 94 78 89 Pulse Rate [Right Pulse Oximeter] Respiratory Rate Blood Pressure 140/99 H Blood Pressure [Ri ght Arm] Blood Pressure [Ri ght Upper Arm] Pulse Oximetry 100 100 100 [facility] 12[facility]08/21 20:01 12/08/21 20:15 12/08/21 20:16 Temperature Pulse Rate 86 105 H 92 Pulse Rate [Right Pulse Oximeter] Respiratory Rate Blood Pressure 137/98 H 137/97 H Blood Pressure [Ri ght Arm] Blood Pressure [Ri ght Upper Arm] Pulse Oximetry 98 100 99 [facility] 12[facility]08/21 21:09 12/08/21 20:17 12/08/21 20:30 Temperature Pulse Rate 94 99 Pulse Rate [Right Pulse Oximeter] 95 Respiratory Rate Blood Pressure Blood Pressure [Ri ght Arm] 144/99 H Blood Pressure [Ri ght Upper Arm] Pulse Oximetry 98 99 100 [facility] 12/08/21 20:32 12/08/21 20:45 12/08/21 20:47 Temperature Pulse Rate 109 H 103 H 107 H Pulse Rate [Right Pulse Oximeter] Respiratory Rate Blood Pressure 139/84 142/114 H Blood Pressure [Ri ght Arm] Blood Pressure [Ri ght Upper Arm] Pulse Oximetry 99 97 98 Oxygen Delivery Me thod 12/08/21 21:00 12/08/21 21:01 12/08/21 21:15 Temperature Pulse Rate 97 99 106 H Pulse Rate [Right Pulse Oximeter] Respiratory Rate Blood Pressure 144/99 H Blood Pressure [Ri ght Arm] Blood Pressure [Ri ght Upper Arm] Pulse Oximetry 99 98 99 Oxygen Delivery Me thod 12/08/21 21:17 12/08/21 21:56 12/08/21 22:29 Temperature 98 F Pulse Rate 97 Pulse Rate [Right Pulse Oximeter] 98 Respiratory Rate 20 20 Blood Pressure 152/77 H Blood Pressure [Ri ght Arm] 133/106 H Blood Pressure [Ri ght Upper Arm] Pulse Oximetry 97 98 98 Oxygen Delivery Me thod Room Air Room Air 12/08/21 22:34 12/08/21 21:56 12/08/21 21:56 Temperature 98 F Pulse Rate Pulse Rate [Right Pulse Oximeter] 99 Respiratory Rate 18 18 Blood Pressure Blood Pressure [Ri ght Arm] 133/106 H Blood Pressure [Ri ght Upper Arm] Pulse Oximetry 100 100 100 Oxygen Delivery Me thod Room Air Room Air 12/08/21 23:51 12/09/21 00:46 12/08/21 23:00 Temperature 97.1 F L Pulse Rate Pulse Rate [Right Pulse Oximeter] 97 97 97 Respiratory Rate 18 18 18 Blood Pressure Blood Pressure [Ri ght Arm] 135/80 142/76 H Blood Pressure [Ri ght Upper Arm] Pulse Oximetry 99 99 Oxygen Delivery Me thod Room Air Room Air 12/09/21 02:30 12/09/21 07:57 12/09/21 07:45 Temperature 97.4 F L 97.2 F L 97.2 F L Pulse Rate Pulse Rate [Right Pulse Oximeter] 79 85 85 Respiratory Rate 16 16 16 Blood Pressure Blood Pressure [Ri ght Arm] 119/79 158/96 H 158/96 H Blood Pressure [Ri ght Upper Arm] Pulse Oximetry 97 98 98 Oxygen Delivery Me thod Room Air Room Air Room Air 12/09/21 07:45 12/09/21 11:58 12/09/21 11:30 Temperature 98.0 F 98.0 F Pulse Rate Pulse Rate [Right Pulse Oximeter] 85 63 63 Respiratory Rate 16 16 16 Blood Pressure Blood Pressure [Ri ght Arm] 158/103 H 158/103 H Blood Pressure [Ri ght Upper Arm] Pulse Oximetry 94 94 Oxygen Delivery Me thod Room Air Room Air Documenting provider has reviewed patient's vital signs: yes DS: Data Data Completed and Pending Labs on day of discharge: Labs from last 24 hours 12/09/21 12/09/21 12/09/21 07:01 07:01 07:01 WBC RBC Hgb 12.1 L Hct MCV MCH MCHC RDW Coeff of Renuka Plt Count Neut % (Auto) Lymph % (Auto) Swain % (Auto) Eos % (Auto) Baso % (Auto) Neut # (Auto) Lymph # (Auto) Swain # (Auto) Eos # (Auto) Baso # (Auto) Abs Immat Gran (auto) INR VBG pH 7.400 VBG pCO2 47 VBG pO2 34.4 VBG HCO3 29 H Sodium 136 Potassium 3.5 L Chloride 103 Carbon Dioxide 27 BUN 8 Creatinine 1.0 Estimated Creat Clear 118.56 Estimated GFR 104 Glucose 104 Lactate 1.5 Calcium 7.8 L Ionized Calcium Gloria 1.03 L Magnesium 1.4 L Total Bilirubin 1.9 H Direct Bilirubin GGT 69 H AST 29 ALT 22 Alkaline Phosphatase 51 C-Reactive Protein Total Protein 6.1 Albumin 3.7 Lipase 82 Urine Color Urine Appearance Urine pH Ur Specific Edmond Urine Protein Urine Glucose (UA) Urine Ketones Urine Blood Urine Nitrite Urine Bilirubin Urine Urobilinogen Ur Leukocyte Esterase Urine RBC Urine WBC Ur Squamous Epith Cells Urine Bacteria Urine Opiates Screen Ur Oxycodone Screen Urine Methadone Screen Ur Propoxyphene Screen Ur Barbiturates Screen U Tricyclic Antidepress Ur Phencyclidine Scrn Ur Amphetamines Screen U Methamphetamines Scrn U Benzodiazepines Scrn Urine Cocaine Screen U Marijuana (THC) Screen Ur Drug Screen Comment Ethyl Alcohol SARS-CoV-2 (PCR) Influenza Type A (PCR) Influenza Type B (PCR) 12/08/21 12/08/21 12/08/21 21:22 21:22 20:28 WBC RBC Hgb Hct MCV MCH MCHC RDW Coeff of Renuka Plt Count Neut % (Auto) Lymph % (Auto) Swain % (Auto) Eos % (Auto) Baso % (Auto) Neut # (Auto) Lymph # (Auto) Swain # (Auto) Eos # (Auto) Baso # (Auto) Abs Immat Gran (auto) INR VBG pH 7.458 H VBG pCO2 31 L VBG pO2 64.3 H VBG HCO3 22 Sodium Potassium Chloride Carbon Dioxide BUN Creatinine Estimated Creat Clear Estimated GFR Glucose Lactate Calcium Ionized Calcium Gloria Magnesium Total Bilirubin Direct Bilirubin GGT AST ALT Alkaline Phosphatase C-Reactive Protein Total Protein Albumin Lipase Urine Color Yellow Urine Appearance Clear Urine pH 7.5 Ur Specific Edmond 1.010 Urine Protein Trace A Urine Glucose (UA) Negative Urine Ketones 1+ A Urine Blood Negative Urine Nitrite Negative Urine Bilirubin Negative Urine Urobilinogen >=8.0 Ur Leukocyte Esterase Negative Urine RBC 0-2 Urine WBC 0-2 Ur Squamous Epith Cells None Urine Bacteria None Urine Opiates Screen Negative Ur Oxycodone Screen Negative Urine Methadone Screen Negative Ur Propoxyphene Screen Negative Ur Barbiturates Screen Negative U Tricyclic Antidepress Negative Ur Phencyclidine Scrn Negative Ur Amphetamines Screen Negative U Methamphetamines Scrn Negative U Benzodiazepines Scrn POSITIVE A* Urine Cocaine Screen Negative U Marijuana (THC) Screen Negative Ur Drug Screen Comment See Note Ethyl Alcohol SARS-CoV-2 (PCR) Influenza Type A (PCR) Influenza Type B (PCR) 12/08/21 12/08/21 12/08/21 20:28 20:28 19:46 WBC RBC Hgb Hct MCV MCH MCHC RDW Coeff of Renuka Plt Count Neut % (Auto) Lymph % (Auto) Swain % (Auto) Eos % (Auto) Baso % (Auto) Neut # (Auto) Lymph # (Auto) Swain # (Auto) Eos # (Auto) Baso # (Auto) Abs Immat Gran (auto) INR VBG pH VBG pCO2 VBG pO2 VBG HCO3 Sodium 139 Potassium 3.6 Chloride 106 Carbon Dioxide 19 L BUN 10 Creatinine 1.0 Estimated Creat Clear 118.56 Estimated GFR 104 Glucose 112 Lactate 4.4 H* Calcium 8.1 L Ionized Calcium Gloria Magnesium Total Bilirubin Direct Bilirubin GGT AST ALT Alkaline Phosphatase C-Reactive Protein Total Protein Albumin Lipase Urine Color Urine Appearance Urine pH Ur Specific [place] Urine Protein Urine Glucose (UA) Urine Ketones Urine Blood Urine Nitrite Urine Bilirubin Urine Urobilinogen Ur Leukocyte Esterase Urine RBC Urine WBC Ur Squamous Epith Cells Urine Bacteria Urine Opiates Screen Ur Oxycodone Screen Urine Methadone Screen Ur Propoxyphene Screen Ur Barbiturates Screen U Tricyclic Antidepress Ur Phencyclidine Scrn Ur Amphetamines Screen U Methamphetamines Scrn U Benzodiazepines Scrn Urine Cocaine Screen U Marijuana (THC) Screen Ur Drug Screen Comment Ethyl Alcohol SARS-CoV-2 (PCR) Negative SARS-CoV-2 Influenza Type A (PCR) Negative PCR FLU A Influenza Type B (PCR) Negative PCR FLU B 12/08/21 12/08/21 12/08/21 17:45 17:45 17:45 WBC RBC Hgb Hct MCV MCH MCHC RDW Coeff of Renuka Plt Count Neut % (Auto) Lymph % (Auto) Swain % (Auto) Eos % (Auto) Baso % (Auto) Neut # (Auto) Lymph # (Auto) Swain # (Auto) Eos # (Auto) Baso # (Auto) Abs Immat Gran (auto) INR 1.06 VBG pH VBG pCO2 VBG pO2 VBG HCO3 Sodium 141 Potassium 3.5 L Chloride 101 Carbon Dioxide 18 L BUN 11 Creatinine 1.1 Estimated Creat Clear 107.78 Estimated GFR 93 Glucose 126 H Lactate 4.5 H* Calcium 9.2 Ionized Calcium Gloria Magnesium Total Bilirubin 1.7 H Direct Bilirubin 0.3 GGT AST 41 H ALT 28 Alkaline Phosphatase 71 C-Reactive Protein < 0.5 L Total Protein 8.6 H Albumin 5.1 H Lipase 158 Urine Color Urine Appearance Urine pH Ur Specific [place] Urine Protein Urine Glucose (UA) Urine Ketones Urine Blood Urine Nitrite Urine Bilirubin Urine Urobilinogen Ur Leukocyte Esterase Urine RBC Urine WBC Ur Squamous Epith Cells Urine Bacteria Urine Opiates Screen Ur Oxycodone Screen Urine Methadone Screen Ur Propoxyphene Screen Ur Barbiturates Screen U Tricyclic Antidepress Ur Phencyclidine Scrn Ur Amphetamines Screen U Methamphetamines Scrn U Benzodiazepines Scrn Urine Cocaine Screen U Marijuana (THC) Screen Ur Drug Screen Comment Ethyl Alcohol 0.11 H SARS-CoV-2 (PCR) Influenza Type A (PCR) Influenza Type B (PCR) 12/08/21 17:45 WBC 9.72 RBC 4.88 Hgb 15.6 Hct 42.5 MCV 87 MCH 32 MCHC 37 H RDW Coeff of Renuka 11.3 L Plt Count 364 Neut % (Auto) 63.2 Lymph % (Auto) 28.4 Swain % (Auto) 7.3 Eos % (Auto) 0.3 Baso % (Auto) 0.7 Neut # (Auto) 6.14 Lymph # (Auto) 2.76 Swain # (Auto) 0.70 Eos # (Auto) 0.03 Baso # (Auto) 0.07 Abs Immat Gran (auto) 0.01 INR VBG pH VBG pCO2 VBG pO2 VBG HCO3 Sodium Potassium Chloride Carbon Dioxide BUN Creatinine Estimated Creat Clear Estimated GFR Glucose Lactate Calcium Ionized Calcium Gloria Magnesium Total Bilirubin Direct Bilirubin GGT AST ALT Alkaline Phosphatase C-Reactive Protein Total Protein Albumin Lipase Urine Color Urine Appearance Urine pH Ur Specific [place] Urine Protein Urine Glucose (UA) Urine Ketones Urine Blood Urine Nitrite Urine Bilirubin Urine Urobilinogen Ur Leukocyte Esterase Urine RBC Urine WBC Ur Squamous Epith Cells Urine Bacteria Urine Opiates Screen Ur Oxycodone Screen Urine Methadone Screen Ur Propoxyphene Screen Ur Barbiturates Screen U Tricyclic Antidepress Ur Phencyclidine Scrn Ur Amphetamines Screen U Methamphetamines Scrn U Benzodiazepines Scrn Urine Cocaine Screen U Marijuana (THC) Screen Ur Drug Screen Comment Ethyl Alcohol SARS-CoV-2 (PCR) Influenza Type A (PCR) Influenza Type B (PCR) Discharge Plan Discharge Disposition: Home, Self-Care Date of Admission: 12/08/21 21:56 Primary Care Provider: Provider,Not a Local Condition: Improved Anticipated Discharge Date/Time: 12/09/21 16:10 Discharge Medications: New multivitamin with folic acid [Thera] 400 mcg Tablet 1 tab PO DAILY Qty: 100 0RF omeprazole 20 mg Capsule,Delayed Release(Dr/Ec) 40 mg PO DAILY@0700 Qty: 30 0RF Discharge Orders: Discharge Order (Routine); Ordered 12/09/21 Ordered By: Yair Stanley Activity Restrictions/Additional Instructions: I recommend you engage with outpatient support group such as a to help maintain abstinence from alcohol. Activity Level: No Restrictions Discharge Diet: Regular Follow Up Appointments: Vikram Wheat MD [Staff Physician] - (Follow up next week) Provider,Not a Local [Primary Care Provider] - Forms: [facility] Info Instructions
[2021-12-09] MEDS: ONDANSETRON 2 MG/ML inj 4 MG IVP (16:42)
== END 2021-12-09 18:02 | disposition home or self-care (01) | DRG 369 ==
LOC: ED 17:57 → MEDSURG 21:46
PROVIDERS: Admitting Provider Family Medicine; Emergency Provider Emergency Medicine; Visit Provider Family Medicine
DX: K21.01 Gastro-esophageal reflux disease with esophagitis, with bleeding (principal); K92.0 Hematemesis; E87.2 Acidosis; F10.239 Alcohol dependence with withdrawal, unspecified; R00.0 Tachycardia, unspecified; I10 Essential (primary) hypertension
CPT/HCPCS: 00731; 36415; 43239; 71045; 74177; 80048; 80053; 80076; 80306; 81001; 82077; 82330; 82803; 82977; 83605; 83690; 83735; 85018; 85025; 85610; 86140; 87631; 88305; 88341; 88342; 94761; 99140; 99284; 99285; A9153; A9270; C9113; J2060; J2405; J2560; J2704; J2765; J3475; J3490; J7030; J7120; Q9967

== ENCOUNTER 2022-11-21 03:03 | Outpatient (CLI) | payer SELFPAY | END 2022-11-21 03:04 | disposition home or self-care (01) | PROVIDERS: Visit Provider Family Medicine | DX: F10.129 Alcohol abuse with intoxication, unspecified (principal) | CPT/HCPCS: A0425; A0429 ==

== ENCOUNTER 2022-11-21 03:34 | Emergency (ER) | payer SELFPAY ==
[2022-11-21 03:44] VITALS: BP 151/111; PULSE 118; RESP 18; TEMP 37.2; O2SAT 95; BMI 25.1
--- NOTE | 2022-11-21 03:48 | ED_ITS ---
HPI - General Adult General Chief complaint: Alcohol/Intoxication Stated complaint: hallucinating Time Seen by Provider: 11/21/22 03:35 History of Present Illness HPI narrative: heavy drinker, states usually goes on couple week binges. fireball whiskey 750cc and 6 pack. states called police thinking he saw people breaking into his house, no one did, called police a second time stating he is hallucinating, EMS brought pt in. breathalyzer was 0.18. states he usually will drink fireball 750cc to 1L. pt states he vomits super hard and gets shakes and sweats when he goes through withdrawals. 31-year-old man presenting to the emergency department via EMS with concern of h allucinations that sound to have been while drinking. He says he realizes that he shouldn't be drinking. He says that he lives in a town home sounds like he inherited in somewhat from his father who has moved out to nearby [facility]. This bothers the bottom to stay in this [facility] community [facility] community. His concerns somewhat is that drinking as a part of like culture but does acknowledge that has some sober people he could connect with there. He says that he knows that his home is safe and so calling police thinking that people were breaking in does not really make sense. Is still afraid though of returning to this [facility] home. Is not having any pain. Was admitted to this facility about a year ago with hematemesis/upper GI bleed, GERD/dyspepsia and alcohol withdrawal. He has not been attending any AA meetings or similar. Does not have a history of alcohol withdrawal seizures. In initial conversation is amenable to assistance with detox Related Data Previous Rx's Medication Instructions Recorded multivitamin with folic acid 400 1 tab PO DAILY #100 tabs 12/09/21 mcg tablet (Thera) omeprazole 20 mg capsule,delayed 40 mg (2 x 20 mg) PO DAILY@0700 12/09/21 release #30 caps ondansetron 4 mg disintegrating 4 mg PO Q4-6H PRN nausea and 11/21/22 tablet vomiting #15 tabs propranolol 20 mg tablet 20 mg PO TID PRN 11/21/22 anxiety/withdrawal #30 tabs Allergies Allergy/AdvReac Type Severity Reaction Status Date / Time No Known Drug Allergies Allergy Verified 12/08/21 15:35 Review of Systems Status of ROS: Reports: 6 or more systems reviewed and unremarkable except as noted in History and below [facility] Medical History GERD (gastroesophageal reflux disease) ?K21.9 - Gastro-esophageal reflux disease without esophagitis (ICD-10) Alcoholism ?F10.20 - Alcohol dependence, uncomplicated (ICD-10) Surgical History S/P tonsillectomy and adenoidectomy ?Z90.89 - Acquired absence of other organs (ICD-10) Social History Narrative: lives with his Dad in [facility]. 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 Graduated from college. no kids. What is your current living situation?: I presently have a place to live Highest level of school completed/degree received: Associate degree: academic program Smoking Status: Never smoker Do you use any of these nicotine containing products: Smokeless Tobacco Second hand tobacco smoke exposure: No How often do you have a drink containing alcohol: 4 or more times a week Alcohol type: hard liquor Alcohol type details: Whiskey - a pint a day How many standard drinks containing alcohol do you have on a typical day: 10 or more How often do you have six or more drinks on one occasion: Daily or almost daily AUDIT-C Alcohol total score: 12 Non-prescribed substance use: denies use Caffeine: Yes service: No Exam Narrative: Exam Narrative: Pleasant. Anxious. Skin is flushed. Back a little diaphoretic. Breathing easily. Cranial nerves 2 through 12 are intact. Eyes are with equal pupils that are briskly reactive. Heart is tachycardic in a regular rhythm. Abdomen is generally tense and tender. Has trouble I think relaxing. Diffusely mildly tense. Lungs are clear. Oropharynx is sticky. Cranial nerves 2-12 intact. He is speaking easily fluidly and moving all extremities without difficulty. Well- perfused peripherally. Const: Vital Signs, click to edit/add: Vital Signs - 24 hr 11/21/22 03:44 Temperature 99.0 F Pulse Rate [Left P ulse Oximeter] 118 H Respiratory Rate 18 Blood Pressure [Ri ght Upper Arm] 151/111 H Pulse Oximetry 95 Oxygen Delivery Me thod Room Air Documenting provider has reviewed patient's vital signs: yes Course Vital Signs Vital signs: Initial Vital Signs Temperature 99.0 F 11/21/22 03:44 Temperature Source Temporal Artery Scan 11/21/22 03:44 Pulse Rate 118 H 11/21/22 03:44 Respiratory Rate 18 11/21/22 03:44 Blood Pressure 151/111 H 11/21/22 03:44 Blood Pressure Mean 124 H 11/21/22 03:44 Blood Pressure Position Sitting 11/21/22 03:44 Pulse Oximetry 95 11/21/22 03:44 Oxygen Delivery Method Room Air 11/21/22 03:44 Vital Signs Temperature 99.0 F 11/21/22 03:44 Pulse Rate 118 H 11/21/22 03:44 Respiratory Rate 18 11/21/22 03:44 Blood Pressure 151/111 H 11/21/22 03:44 Pulse Oximetry 95 11/21/22 03:44 Oxygen Delivery Method Room Air 11/21/22 03:44 Temperature 99.0 F 11/21/22 08:35 Pulse Rate 95 11/21/22 08:35 Respiratory Rate 18 11/21/22 08:35 Blood Pressure 135/84 11/21/22 08:35 Pulse Oximetry 95 11/21/22 07:39 Oxygen Delivery Method Room Air 11/21/22 07:39 Medical Decision Making MDM Narrative Medical decision making narrative: Certainly would benefit from some hydration. Presumably somewhat acidotic related to alcohol effect/dehydrated. Will check labs. Verify hemoglobin level. Denies substances other than alcohol. IV hydration and antiemetic with reassessment. Monitoring in the emergency department. Overall definitely improved. Much more relaxed. Diaphoresis and flushed skin has resolved. Labs are unremarkable though with perhaps as expected elevated transaminases I have encouraged toward detox. He says he is committed to alcohol cessation notes having had successful cold turkey cessation in the past. Becomes apparent that he is no longer interested in going to a detox facility. Did mention [place] a number of times; that father has some connection there. Vaguely expresses an interest in treatment. Certainly cannot range treatment from the emergency department at this time. Would anticipate collection now by friend or family. Easily ambulatory from the ER. See patient discharge plan Lab Data Lab results reviewed: Yes I reviewed the patient's lab results Labs: Lab Results 11/21/22 11/21/2211/21/23 Range/Units 04:00 04:01 04:02 Hgb 14.5 (13.5-17.5) gm/dL Sodium 143 (135-149) mmol/L Potassium 3.7 (3.6-5.1) mmol/L Chloride 99 (96-114) mmol/L Carbon Dioxide 28 (20-32) mmol/L Anion Gap 16 H (7-15) mEq/L BUN 8 (5-24) mg/dL Creatinine 0.8 (0.5-1.5) mg/dL Estimated Creat Clear 143.80 Estimated GFR 122 ml/min Glucose 115 (60-115) mg/dL Calcium 9.7 (8.4-10.6) mg/dL Total Bilirubin 0.6 (0.1-1.5) mg/dL Direct Bilirubin 0.2 (0.0-0.5) mg/dL AST 144 H (12-35) U/L ALT 148 H (4-50) U/L Alkaline Phosphatase 104 (40-150) U/L Total Protein 8.7 H (6.0-8.3) g/dL Albumin 5.0 (3.3-5.0) g/dL Urine Opiates Screen Negative (Negative) Ur Oxycodone Screen Negative (Negative) Urine Methadone Screen Negative (Negative) Ur Propoxyphene Screen Negative (Negative) Ur Barbiturates Screen Negative (Negative) U Tricyclic Antidepress Negative (Negative) Ur Phencyclidine Scrn Negative (Negative) Ur Amphetamines Screen Negative (Negative) U Methamphetamines Scrn Negative (Negative) U Benzodiazepines Scrn Negative (Negative) Urine Cocaine Screen Negative (Negative) U Marijuana (THC) Screen Negative (Negative) Ur Drug Screen Comment See Note Ethyl Alcohol 0.21 H (0.01-0.03) % Discharge Plan Discharge Clinical Impression: Alcoholism, Anxiety, Dehydration Patient Disposition: Home w/ Parent or Adult Condition: Improved Additional Instructions: I'm happy you feel better. Hopeful even? Get yourself a sponsor. Attend AA. These meetings are at least readily available and can help you be accountable in community. And it sounds like your sober cousin might be somebody good to connect with as well. Sending prescriptions for propranolol for anxiety/withdrawal symptoms and Zofran for nausea. Prescriptions: New ondansetron 4 mg tablet,disintegrating 4 mg PO Q4-6H PRN (Reason: nausea and vomiting) Qty: 15 0RF propranolol 20 mg tablet 20 mg PO TID PRN (Reason: anxiety/withdrawal) Qty: 30 0RF No Action multivitamin with folic acid [Thera] 400 mcg Tablet 1 tab PO DAILY Qty: 100 0RF omeprazole 20 mg Capsule,Delayed Release(Dr/Ec) 40 mg PO DAILY@0700 Qty: 30 0RF Follow Up/Referrals: Provider,Not a Local [Primary Care Provider] - Stand Alone Forms: MyHealth Info Instructions
[2022-11-21 04:17] LABS: Hemoglobin* 14.5 gm/dL (13.5-17.5)
[2022-11-21 04:24] LABS: Amphetamine Screen Urine Negative (Negative); Barbiturate Screen Urine Negative (Negative); Benzodiazepines Screen Urine Negative (Negative); Cannabinoid Screen Urine Negative (Negative); Cocaine Screen Urine Negative (Negative); Methadone Screen Urine Negative (Negative); Methamphetamines Screen Urine Negative (Negative); Opiate Screen Urine Negative (Negative); Oxycodone Screen Urine Negative (Negative); Phencyclidine Screen Urine Negative (Negative); Tricyclic Antidepressant Urine Negative (Negative)
[2022-11-21 04:25] LABS: Chloride* 99 mmol/L (96-114); Sodium* 143 mmol/L (135-149)
[2022-11-21 04:26] LABS: Potassium* 3.7 mmol/L (3.6-5.1)
[2022-11-21 04:28] LABS: Alanine Aminotransferase* 148 U/L (4-50); Alkaline Phosphatase* 104 U/L (40-150); Anion Gap 16 mEq/L (7-15); Aspartate Amino Transferase* 144 U/L (12-35); Bilirubin Direct* 0.2 mg/dL (0.0-0.5); Bilirubin Total* 0.6 mg/dL (0.1-1.5); Blood Urea Nitrogen* 8 mg/dL (5-24); Calcium* 9.7 mg/dL (8.4-10.6); Carbon Dioxide* 28 mmol/L (20-32); Creatinine* 0.8 mg/dL (0.5-1.5); Estimated Glomerular Filt Rate 122 ml/min; Glucose* 115 mg/dL (60-115); Total Protein* 8.7 g/dL (6.0-8.3)
[2022-11-21 04:29] LABS: Ethanol* 0.21 % (0.01-0.03)
[2022-11-21 07:39] VITALS: BP 135/84; PULSE 95; RESP 18; TEMP 37.2; O2SAT 95
--- NOTE | 2022-11-21 08:04 | ED.NURSE ---
Pt ambulates well independently to BR, tolerates well. Reports improvement in symptoms.
[2022-11-21 08:35] VITALS: BP 135/84; PULSE 95; RESP 18; TEMP 37.2
== END 2022-11-21 08:36 | disposition home or self-care (01) ==
LOC: ED 06:24
PROVIDERS: Emergency Provider Family Medicine
DX: F10.129 Alcohol abuse with intoxication, unspecified (principal); F41.9 Anxiety disorder, unspecified; E86.0 Dehydration
CPT/HCPCS: 36415; 80048; 80076; 80306; 82077; 85018; 99283; 99284